=== PATIENT | female | born 1960 | race Caucasian/White ===

== ENCOUNTER 2019-12-06 11:26 | Inpatient (IN) | payer BC ==
[~2019-12-06 11:26] MED LIST: Iopamidol 370 76% 100 ML VIAL ONE
[2019-12-06] MEDS ORDERED: Heparin (Artline) 1,000 ML ONE (11:57)
[2019-12-06] MEDS ORDERED: Heparin 25,000 units/D5W 500 ML ONE (11:59)
[2019-12-06] MEDS ORDERED: Morphine 4 MG/ML VIAL ONE ×2 (12:02→12:23)
--- NOTE | 2019-12-06 12:10 | RAD ---
EXAM: Single view of the chest HISTORY: Chest pain COMPARISON: None FINDINGS: Single view of the chest shows a normal sized cardiomediastinal silhouette. There is no teresa dence of consolidation, mass, or pleural effusion. Degenerative changes are seen in the spine. IMPRESSION: No evidence of acute cardiopulmonary disease
[2019-12-06 12:14] LABS: #Basophils 0.1 thou/uL (0.0-0.2); #Eosinphils 0.2 thou/uL (0.0-0.7); #Lymphocytes 2.4 thou/uL (1.20-3.40); #Monocytes 0.8 thou/uL (0.11-0.59); #Neutrophils 7.4 thou/uL (1.40-6.50); %Basophils 1.3 % (0.0-1.0); %Eosinophils 1.5 % (0.0-10.0); %Lymphocytes 21.8 % (21.0-51.0); %Monocytes 7.2 % (0.0-10.0); %Neutrophils 68.1 % (42.0-75.0); Hemoglobin 16.1 g/dL (12.0-16.0); Mean Corpuscular Hemoglobin 30.6 pg (27.0-31.0); Mean Corpuscular Volume 95.5 fL (78.0-98.0); Mean Platelet Volume 6.6 fL (7.4-10.4); Platelet Count 304 thou/uL (130-400); RBC Distribution Width 12.6 % (11.5-14.5); Red Blood Cell (RBC) Count 5.26 mill/uL (4.20-5.40); White Blood Cell (WBC) Count 10.9 thou/uL (4.8-10.8)
[2019-12-06] MEDS ORDERED: Heparin 25,000 units/D5W 500 ML IV SCH (12:15)
[2019-12-06] MEDS ORDERED: Heparin 10,000 UNITS/ 10 ML VIAL SLOW IVP SCH (12:15)
[2019-12-06 12:20] LABS: PTT 26.4 SEC (22.9-36.1); Prothrombin Time 13.3 SEC (12.0-14.7)
[2019-12-06 12:30] LABS: ALT (SGPT) 28 U/L (8-55); AST (SGOT) 18 U/L (5-34); Albumin 4.5 g/dL (3.5-5.0); Alkaline Phosphatase 106 U/L (40-110); Anion Gap 15 mmol/L (10-20); BUN (Urea Nitrogen) 10 mg/dL (9.8-20.1); Bilirubin, Total 0.5 mg/dL (0.2-1.2); Calc. Creatinine Clearance 0 mL/min (70-130); Calcium 9.7 mg/dL (7.8-10.44); Carbon Dioxide 27 mmol/L (22-29); Chloride 100 mmol/L (98-107); Estimated GFR-MDRD 73; Globulin 3.5 g/dL (2.4-3.5); Glucose 95 mg/dL (70-105); Potassium 3.9 mmol/L (3.5-5.1); Sodium 138 mmol/L (136-145)
[2019-12-06] MEDS ORDERED: Midazolam HCl 2 mg/2 ml Vial ONE ×3 (13:17→14:58)
[2019-12-06] MEDS ORDERED: Fentanyl 100 MCG/2 ML VIAL ONE (13:17)
[2019-12-06] MEDS ORDERED: Heparin 10,000 UNITS/1 ML VIAL ONE (13:17)
[2019-12-06] MEDS ORDERED: Adenosine 6 MG/2 ML VIAL ONE (13:21)
[2019-12-06] MEDS ORDERED: Nitroglycerin 100MG/250ML BOT 250 ML ONE (13:21)
[2019-12-06] MEDS ORDERED: Clopidogrel Bisulfate 300 MG TAB ONE (14:01)
[2019-12-06] MEDS ORDERED: Aggrastat 12.5 MG/250 ML 250 ML ONE (14:01)
[2019-12-06] MEDS ORDERED: Heparin (Artline) 500 ML ONE ×2 (14:03→14:06)
[2019-12-06] MEDS ORDERED: Aggrastat 12.5 MG/250 ML 250 ML IVPB SCH ×2 (15:15)
[2019-12-06] MEDS ORDERED: Sodium Chloride 0.9% 1,000 ML IV SCH ×2 (15:15)
[2019-12-06] MEDS ORDERED: Morphine 2 MG/ML SYRINGE ONE ×4 (16:03→17:40)
[2019-12-06] MEDS ORDERED: Ondansetron PF 4 MG/2 ML Vial ONE (16:49)
[2019-12-06] MEDS ORDERED: Acetaminophen 500 MG TAB PO PRN (18:44)
[2019-12-06] MEDS ORDERED: cloNIDine 0.1 MG TAB PO PRN (18:45)
[2019-12-06] MEDS: HYDROcodone/Acetaminophen 10/325 mg Tablet PO PRN (20:40)
[2019-12-06] MEDS: Diazepam 5 MG TAB PO PRN (20:47)
[2019-12-06 20:52] VITALS: BMI 31.4
[2019-12-06] MEDS: Morphine 4 MG/ML VIAL SLOW IVP PRN (23:04)
[2019-12-06 23:24] LABS: Hemoglobin 12.9 g/dL (12.0-16.0); Platelet Count 265 thou/uL (130-400)
[2019-12-06] MEDS: Zolpidem Tartrate 5 MG TAB PO PRN (23:54)
[2019-12-07] MEDS: HYDROcodone/Acetaminophen 10/325 mg Tablet PO PRN ×4 (02:15→20:05)
[2019-12-07] MEDS: Levothyroxine Sodium 88 MCG TAB PO SCH (04:15)
[2019-12-07] MEDS: Diazepam 5 MG TAB PO PRN ×3 (04:15→20:05)
[2019-12-07 04:56] LABS: #Basophils 0.1 thou/uL (0.0-0.2); #Eosinphils 0.2 thou/uL (0.0-0.7); #Monocytes 1.3 thou/uL (0.11-0.59); #Neutrophils 8.9 thou/uL (1.40-6.50); %Basophils 0.8 % (0.0-1.0); %Eosinophils 1.6 % (0.0-10.0); %Lymphocytes 15.8 % (21.0-51.0); %Monocytes 10.2 % (0.0-10.0); %Neutrophils 71.6 % (42.0-75.0); Hemoglobin 12.9 g/dL (12.0-16.0); Mean Corpuscular HGB CONC 32.8 g/dL (32.0-36.0); Mean Corpuscular Hemoglobin 31.7 pg (27.0-31.0); Mean Corpuscular Volume 96.7 fL (78.0-98.0); Mean Platelet Volume 6.5 fL (7.4-10.4); Platelet Count 267 thou/uL (130-400); RBC Distribution Width 12.5 % (11.5-14.5); Red Blood Cell (RBC) Count 4.05 mill/uL (4.20-5.40); White Blood Cell (WBC) Count 12.5 thou/uL (4.8-10.8)
[2019-12-07 05:24] LABS: Calcium 8.2 mg/dL (7.8-10.44)
[2019-12-07 05:25] LABS: ALT (SGPT) 19 U/L (8-55); AST (SGOT) 16 U/L (5-34); Albumin 3.5 g/dL (3.5-5.0); Alkaline Phosphatase 86 U/L (40-110); Anion Gap 13 mmol/L (10-20); BUN (Urea Nitrogen) 9 mg/dL (9.8-20.1); Bilirubin, Total 0.8 mg/dL (0.2-1.2); Calc. Creatinine Clearance 121 mL/min (70-130); Carbon Dioxide 23 mmol/L (22-29); Chloride 103 mmol/L (98-107); Estimated GFR-MDRD 82; Globulin 2.9 g/dL (2.4-3.5); Glucose 120 mg/dL (70-105); Protein, Total 6.4 g/dL (6.0-8.3); Sodium 135 mmol/L (136-145)
--- NOTE | 2019-12-07 07:27 | OP ---
DATE OF PROCEDURE: 12/06/2019 PREPROCEDURE DIAGNOSIS: Acute superior femoral artery stent thrombosis. POSTPROCEDURE DIAGNOSIS: Acute superior femoral artery stent thrombosis. PROCEDURE PERFORMED: 1. Aortogram. 2. Unilateral aortofemoral runoff. 3. Thrombectomy with a Pronto catheter followed by Angiojet. 4. Successful RIM BUSTER with a 4 x 40 mm balloon catheter with a suboptimal result and stent placement to the previously placed stent in the proximal region with a 6 x 40 mm Innova stent and a 6 x 60 mm Innova stent distally (a second 6 x 40 mm stent was not available). COMPLICATIONS: None. ESTIMATED BLOOD LOSS: Less than 20 mL. DESCRIPTION OF PROCEDURE: The patient was seen and evaluated in the office for acute pain in her right thigh. She underwent successful SFA stent placement one day prior. Ultrasound confirmed complete occlusion of the SFA stent. She was then transferred to the emergency room where she received heparin and pain medication. She was then brought for urgent angiography. The patient was draped and prepped in a sterile fashion. Access was obtained in the left femoral artery under ultrasound guidance. Micropuncture sheath was employed. Aortogram performed with Contra catheter. The Contra catheter was then placed successfully in the contralateral segment and exchanged for a Troy catheter. Images then performed. FINDINGS: 1. Aorta has no significant stenosis or aneurysm. 2. Right lower extremity-the common iliac, external iliac, common femoral artery have no significant disease. The SFA does have acute occlusion of the stent. Reconstitution is difficult to assess. The original occlusion appears to be proximal to the stented area. INTERVENTIONAL PROCEDURE: Heparin was used for anticoagulation. The 5-Anguillan sheath was exchanged for a 6-Anguillan Destination sheath. This was placed successfully into the contralateral segment. Initially, a Luge wire would not cross successfully. A Wholey wire was then used and crossed successfully into the popliteal artery. A Troy catheter was then used and exchanged for a Luge wire. A Pronto catheter was used with multiple passes performed. There did appear to be flow but thrombus present within the stented region. With aspiration, it appeared the thrombus was a white thrombus, likely consistent with platelet driven thrombus. After Pronto was used, a 4 x 40 mm balloon catheter was then inflated at the area of interest. Please note, prior to balloon inflation, adenosine and nitroglycerin were given intra-arterially. Multiple balloon inflations were performed. There appeared to be a dissection noted proximally and distally from the previously placed stent. There was significant thrombus present. It was decided to proceed with Angiojet. The Angiojet was successfully performed x2 passes. There was little change in the thrombus. This was then removed and replaced with a 6 x 40 mm Innova stent. This was placed proximally successfully with overlap of the previously placed stent. A second stent was then placed distally. A 6 x 60 mm Innova stent was placed. I did prefer a 6 x 40 mm Innova stent, but this was not available. This was deployed successfully. Intra-arterial adenosine and nitroglycerin were given. Then a 4 x 100 mm Babcock balloon catheter was then placed over the wire with multiple inflations performed. This was then removed and replaced with a 5 x 100 mm Babcock balloon catheter. Again, multiple inflations performed. There was excellent angiographic result at the end of the study. There was a lesion noted distally estimated at 50%. Due to concern for this being an outflow issue, a gradient was performed. There was no significant gradient within the area of interest. This was in the ostium of the anterior tibial and tibioperoneal trunk. There was a slow gradient noted, but no significant gradient present within the stented region, proximal or distal to the stent. The patient was transferred to telemetry monitoring in stable condition. Job ID: [id number]
[2019-12-07] MEDS: Morphine 4 MG/ML VIAL SLOW IVP PRN ×2 (08:35→13:00)
[2019-12-07] MEDS: Clopidogrel Bisulfate 75 MG TAB PO SCH (08:37)
[2019-12-07] MEDS: Ezetimibe 10 MG TAB PO SCH (08:37)
[2019-12-07] MEDS: Losartan 25 MG TAB PO SCH (08:38)
[2019-12-07] MEDS: Aspirin Chewable 81 MG TAB PO SCH (08:38)
[2019-12-07] MEDS ORDERED: Aspirin Chewable 81 MG TAB PO SCH (09:00)
[2019-12-07] MEDS ORDERED: Clopidogrel Bisulfate 75 MG TAB PO SCH (09:00)
--- NOTE | 2019-12-07 09:27 | DIS ---
DATE OF ADMISSION: 12/06/2019 DATE OF DISCHARGE: 12/08/2019 DISCHARGE DIAGNOSES: 1. Acute thrombosis of the superficial femoral artery stent. 2. Peripheral vascular disease. 3. Tobacco abuse. CONSULTATIONS: None. PROCEDURES: 1. Aortogram. 2. Bilateral aortofemoral runoff. 3. Successful stent placement to the SFA. 4. Successful thrombectomy. HOSPITAL COURSE: Ms. Lin is a very pleasant 59-year-old woman, who recently presented to the office with low-grade fever and severe thigh pain. She underwent an urgent ultrasound, that showed acute thrombosis of a stent placed one day prior. She underwent urgent revascularization with successful stent placement and thrombectomy (please see procedure note). The patient did have low-grade fever on the hospital. T-max 99.6. The patient did have a chest x-ray and UA. The patient did not complain of cough, congestion or burning on urination. The patient was placed on Keflex 500 mg one p.o. q.i.d. From a stent standpoint, we would recommend aspirin and Plavix in addition to low- dose Xarelto. Pt did stay overnight with Tm of 99. I did reduce the MSO4 overnight. Pt did complain of pain to the leg. I confirmed adequate pulse on PE to the right popliteal region. Doppler to the PT region was also strong. I did recommend an arterial duplex vs a CT scan. Pt not interested and wished to go home. I did speak with Dr. Aguirre. At her request, she would like to increase her [place]. I stated I could not do so given my restriction in prescribing meds that require triplicate. She has appt with Dr. Aguirre this afternoon at 2pm. DISCHARGE MEDICATIONS: 1. Aspirin 81 q.a.m. 2. Keflex 500 mg q.6 hours. for five days 3. Plavix 75 q.a.m. 4. Valium as prescribed. 5. Zetia as prescribed. 6. Hydrocodone as prescribed. 7. Levothyroxine 88 mcg q.a.m. 8. Cozaar 100 mg one p.o. daily. 9. Xarelto 2.5mg one p.o. twice a day CONDITION ON DISCHARGE: Stable. Job ID: [id number] [facility]
--- NOTE | 2019-12-07 09:38 | RAD ---
EXAM: Chest 2 views: HISTORY: Fever COMPARISON: None. FINDINGS: There is a normal-sized cardiomediastinal silhouette. There is no evidence of consolidation, mass, or pleural effusion. Degenerative changes are seen in the spine. Hardware seen in the cervical spine. IMPRESSION: No evidence of acute cardiopulmonary disease
[2019-12-07 10:25] LABS: Bacteria/HPF None Seen HPF (None Seen); RBC/HPF 0-3 HPF (0-3); Squamous Epithelial 0-3 HPF (0-3); WBC/HPF None Seen HPF (0-3)
[2019-12-07] MEDS ORDERED: Ibuprofen 600 MG TAB PO SCH (10:45)
[2019-12-07] MEDS: Cephalexin 250 MG CAP PO SCH ×3 (13:02→23:18)
[2019-12-07] MEDS: Morphine 2 MG/ML SYRINGE SLOW IVP PRN ×2 (18:25→23:18)
[2019-12-07] MEDS: Acetaminophen 500 MG TAB PO PRN (21:42)
[2019-12-07] MEDS: Zolpidem Tartrate 5 MG TAB PO PRN (21:47)
[2019-12-08] MEDS: HYDROcodone/Acetaminophen 10/325 mg Tablet PO PRN ×3 (00:04→08:11)
[2019-12-08] MEDS: Acetaminophen 500 MG TAB PO PRN (02:05)
[2019-12-08] MEDS: Diazepam 5 MG TAB PO PRN (04:04)
[2019-12-08 04:56] VITALS: BP 135/63; TEMP 98.8
[2019-12-08] MEDS: Levothyroxine Sodium 88 MCG TAB PO SCH (05:05)
[2019-12-08] MEDS: Cephalexin 250 MG CAP PO SCH (05:05)
[2019-12-08] MEDS: Morphine 2 MG/ML SYRINGE SLOW IVP PRN (05:06)
[2019-12-08] MEDS: Ezetimibe 10 MG TAB PO SCH (08:10)
[2019-12-08] MEDS: Aspirin Chewable 81 MG TAB PO SCH (08:11)
[2019-12-08] MEDS: Clopidogrel Bisulfate 75 MG TAB PO SCH (08:11)
[2019-12-08] MEDS: Losartan 25 MG TAB PO SCH (08:13)
[2019-12-08] MEDS ORDERED: HYDROcodone/Acetaminophen 10/325 mg Tablet PO PRN (08:48)
[2019-12-08] MEDS ORDERED: Ibuprofen 600 MG TAB PO PRN (08:52)
[2019-12-08] MEDS ORDERED: Rivaroxaban 2.5 MG TAB PO SCH (09:00)
--- NOTE | 2019-12-09 10:01 | EKG ---
Test Reason : Blood Pressure : / mmHG Vent. Rate : 084 BPM Atrial Rate : 084 BPM P-R Int : 138 ms QRS Dur : 086 ms QT Int : 380 ms P-R-T Axes : 003 065 -04 degrees QTc Int : 449 ms Normal sinus rhythm Cannot rule out Anterior infarct , age undetermined Abnormal ECG Confirmed by PRICILA BARAHONA D.O. ([id number]), film and video editor NELIDA MAGALLANES ([id number]) on 12/09/2019 10:00:55 AM Referred By: Confirmed By:PRICILA BARAHONA D.O.
--- NOTE | 2019-12-11 01:04 | PQF ---
MITUL MARTINEZ RICARDO MD [id number] [facility]-292 [id number] CLINICAL DOCUMENTATION CLARIFICATION FORM: POST DISCHARGE Addendum to original discharge summary date: ____ Late entry note date: __ DATE: 12/11/2019 ATTN: Dayron Macario Please exercise your independent, professional judgment in responding to the clarification form. Clinical indicators are provided on the bottom of this form for your review Can you please clarify the condition of the patient being treated? Please check appropriate box(s) to clarify if the following diagnosis has been ruled in or ruled out: Artery Dissection [ ] Ruled in diagnosis [ ] Continue to treat [ ] Resolved [ ] Ruled out diagnosis [ ] Cannot rule out diagnosis [ ] Other diagnosis [ ] Unable to determine In addition, please specify: Present on Admission (POA): [ ] Yes [ ] No [ ] Unable to determine For continuity of documentation, please document condition throughout progress notes and discharge summary. Thank You. CLINICAL INDICATORS - SIGNS / SYMPTOMS / LABS OP Note 12/06 "There appeared to be a dissection noted proximally and distally from the previous palced stent" ED Notes 12/06 "Patient presents for evaluation of blood clot" ED Notes 12/06 "RLE pain and swelling" RISK FACTORS ED Notes 12/06-HTN ED Notes 12/06-Smoker OP Note 12/06-Acute superior femoral artery stent thrombosis DS 12/08-PVD TREATMENTS OP Note 12/06-Thrombectomy with Stent insertion JAN 20-Heparin 1000ml IV JAN 20-Aggrastat 12.5mg IV (This form is maintained as a part of the permanent medical record) 2014 [employer]. All Rights Reserved [email or web address] [not provided] MTDD
--- NOTE | 2019-12-12 09:49 | EKG ---
Test Reason : Blood Pressure : / mmHG Vent. Rate : 078 BPM Atrial Rate : 078 BPM P-R Int : 140 ms QRS Dur : 090 ms QT Int : 402 ms P-R-T Axes : 026 062 049 degrees QTc Int : 458 ms Normal sinus rhythm Possible Inferior infarct , age undetermined Abnormal ECG No previous ECGs available Confirmed by GEOVANY GAINES ([id number]) on 12/12/2019 9:48:26 AM Referred By: MO Confirmed By:GEOVANY GAINES
--- NOTE | 2019-12-12 10:21 | EKG ---
Test Reason : Blood Pressure : / mmHG Vent. Rate : 065 BPM Atrial Rate : 065 BPM P-R Int : 134 ms QRS Dur : 092 ms QT Int : 390 ms P-R-T Axes : 035 077 087 degrees QTc Int : 405 ms Normal sinus rhythm Cannot rule out Inferior infarct (cited on or before 06-DEC-2019) T wave abnormality, consider anterolateral ischemia Abnormal ECG When compared with ECG of 06-DEC-2019 15:43, (Unconfirmed) Nonspecific T wave abnormality, worse in Inferior leads T wave inversion now evident in Anterolateral leads QT has shortened Confirmed by GEOVANY GAINES (2) on 12/12/2019 10:21:08 AM Referred By: MO Confirmed By:GEOVANY GAINES
--- NOTE | 2019-12-17 17:53 | PQF ---
MITUL MARTINEZ RICARDO MD [id number] [facility]-292 [id number] CLINICAL DOCUMENTATION CLARIFICATION FORM: POST DISCHARGE Addendum to original discharge summary date: ____ Late entry note date: __ DATE: 12/17/2019 ATTN: Dayron Macario Please exercise your independent, professional judgment in responding to the clarification form. Clinical indicators are provided on the bottom of this form for your review Please check appropriate box(s): [ ] Hyponatremia [ ] Not clinically significant laboratory finding [ ] Other diagnosis [ ] Unable to determine In addition, please specify: Present on Admission (POA): [ ] Yes [ ] No [ ] Unable to determine For continuity of documentation, please document condition throughout progress notes and discharge summary. Thank You. CLINICAL INDICATORS - SIGNS / SYMPTOMS/ LABS are present in the medical record: Labs Sodium:12/0622=490 12/0749=695 ED Notes 12/06 "RLE pain and swelling" ED Notes 12/06 "Patient presents for evaluation of blood clot" RISK FACTORS ED Notes 12/06-History of cervix and vagina ED Notes 12/06-HTN ED Notes 12/06-Smoker TREATMENT Laboratory Monitoring-Collected 12/06 Sodium Chloride 1000ml IV-MAR 12/06 (This form is maintained as a part of the permanent medical record) 2014 [employer] All Rights Reserved [email or web address] [phone]
== END 2019-12-08 11:12 | disposition home or self-care (01) | DRG 272 ==
LOC: ERS 11:26 → 2NO 12:36
PROVIDERS: ADMIT Internal Medicine Cardiovascular Disease; ATTEND Emergency Medicine
PROC: 04CK3ZZ Extirpation of Matter from Right Femoral Artery, Percutaneous Approach (ICD-10-PCS; principal; 2019-12-06)
PROC: 047K3DZ Dilation of Right Femoral Artery with Intraluminal Device, Percutaneous Approach (ICD-10-PCS; 2019-12-06)
PROC: B41D1ZZ Fluoroscopy of Aorta and Bilateral Lower Extremity Arteries using Low Osmolar Contrast (ICD-10-PCS; 2019-12-06)
DX: T82.868A Thrombosis due to vascular prosthetic devices, implants and grafts, initial encounter (principal); F41.9 Anxiety disorder, unspecified; F17.200 Nicotine dependence, unspecified, uncomplicated; Y84.8 Other medical procedures as the cause of abnormal reaction of the patient, or of later complication, without mention of misadventure at the time of the procedure; I73.9 Peripheral vascular disease, unspecified; I10 Essential (primary) hypertension; Z85.41 Personal history of malignant neoplasm of cervix uteri; Z90.49 Acquired absence of other specified parts of digestive tract; Z90.710 Acquired absence of both cervix and uterus; Z98.1 Arthrodesis status; Z88.1 Allergy status to other antibiotic agents; Z88.8 Allergy status to other drugs, medicaments and biological substances
CPT/HCPCS: 36415; 37184; 37226; 71045; 71046; 76942; 80053; 81015; 85025; 85347; 85610; 85730; 86850; 86900; 86901; 87040; 92973; 92977; 93005; 93010; 96374; 96375; 99152; 99153; C1725; C1757; C1769; C1887; J0153; J1644; J2250; J2270; J2405; J3010; J3246; Q9967

== ENCOUNTER 2025-09-20 12:51 | Outpatient (CLI) | payer BC | END 2025-09-20 12:52 | disposition home or self-care (01) | LOC: BICMAMMO 12:51 | PROVIDERS: ATTEND Internal Medicine | DX: Z12.31 Encounter for screening mammogram for malignant neoplasm of breast (principal); Z80.3 Family history of malignant neoplasm of breast; Z85.89 Personal history of malignant neoplasm of other organs and systems | CPT/HCPCS: 77063; 77067 ==

== ENCOUNTER 2025-09-20 13:27 | Outpatient (CLI) | payer BC | END 2025-09-20 13:28 | disposition home or self-care (01) | LOC: BICCT 13:27 → MERGE 13:27 → BICCT 13:28 | PROVIDERS: ATTEND Internal Medicine | DX: Z12.2 Encounter for screening for malignant neoplasm of respiratory organs (principal); F17.210 Nicotine dependence, cigarettes, uncomplicated; I25.10 Atherosclerotic heart disease of native coronary artery without angina pectoris | CPT/HCPCS: 71271 ==